=== PATIENT | male | born 1965 | race Caucasian/White ===

== ENCOUNTER 2020-01-04 21:58 | Emergency (ER) | payer BC ==
[2020-01-04] MEDS ORDERED: Bupivacaine 0.5% 10 ML SDV INJECT ONE (22:44)
[2020-01-04] MEDS ORDERED: Penicillin G Benzathine 1,200,000 Units/2 ML Syringe IM ONE (22:59)
--- NOTE | 2020-01-04 23:02 | EDM.PDOC ---
ED HPI GENERAL MEDICAL PROBLEM - General Chief Complaint: General Stated Complaint: TOOTH ACHE Time Seen by Provider: 01/04/20 22:45 Source of Information: Reports: Patient - History of Present Illness INITIAL COMMENTS - FREE TEXT/NARRATIVE: The patient is a 54-year-old male who presents the ER secondary to pain and swelling in his left lower mandible. He has some bad teeth and does have a dental appointment coming up. No other complaints. Left Lower Tooth/Teeth Pain Score (Numeric/FACES): 8 - Related Data Allergies Allergy/AdvReac Type Severity Reaction Status Date / Time Sulfa (Sulfonamide Allergy Anaphylactic Verified 01/04/20 22:17 Antibiotics) Shock Home Meds: Home Meds . [No Known Home Meds] 01/04/20 [History] Past Medical History Cardiovascular History: Reports: None Respiratory History: Reports: None Gastrointestinal History: Reports: None Genitourinary History: Reports: None Musculoskeletal History: Reports: Fracture Neurological History: Reports: None Psychiatric History: Reports: None Endocrine/Metabolic History: Reports: None Hematologic History: Reports: None Immunologic History: Reports: None Oncologic (Cancer) History: Reports: None Dermatologic History: Reports: None - Infectious Disease History Infectious Disease History: Reports: Chicken Pox - Past Surgical History HEENT Surgical History: Reports: Other (See Below) Other HEENT Surgeries/Procedures: facial sx. Musculoskeletal Surgical History: Reports: Other (See Below) Other Musculoskeletal Surgeries/Procedures:: back sx L3, L4,L5. L foot sx Social & Family History - Tobacco Use Smoking Status *Q: Current Every Day Smoker Years of Tobacco use: 38 Packs/Tins Daily: 1 - Recreational Drug Use Recreational Drug Use: No ED ROS GENERAL - Review of Systems Review Of Systems: See Below (Positive for dental pain and swelling, negative for fevers, negative for headache) ED EXAM, GENERAL - Physical Exam Exam: See Below Free Text/Narrative:: Constitutional: No acute distress, Non-toxic appearance. HEENT: Normocephalic, Atraumatic, EOMI, poor dentition, just laterally of teeth 21 and 22 there is a large dental abscess, there is some associated swelling of the mandible externally Neck: Normal range of motion, No stridor, trachea midline Respiratory: No respiratory distress, No tachypnea Cardiovascular: Deferred Gastrointestinal: Deferred Genital / Urinary: Deferred Musculoskeletal: All four extremities present and atraumatic Back: FROM Integument: Warm, Dry, Color is ethnicity appropriate, No rash. Neuro: Alert, Awake, No focal deficits noted Psych: Affect, Judgement, mood normal Course - Vital Signs Text/Narrative:: Local dental block and dental abscess incision and drainage was performed by me using bupivacaine 0.5% and I injected 4 mL into the dental abscess. No complications occurred and then I used a #11 blade and performed a 1 cm linear incision to the area of greatest fluctuance and large amount of bloody purulent drainage was obtained. The patient was then given a dose of Bicillin LA and he is stable for discharge. Last Recorded V/S: Last Vital Signs Temp 36.2 C 01/04/20 23:12 Pulse 66 01/04/20 23:12 Resp 17 01/04/20 23:12 BP 131/68 01/04/20 23:12 Pulse Ox 98 01/04/20 23:12 - Orders/Labs/Meds Meds: Medications Discontinued Medications Generic Name Dose Route Start Last Admin Trade Name Gem PRN Reason Stop Dose Admin Bupivacaine HCl 10 ml 01/04/20 22:44 01/04/20 22:48 Sensorcaine-Mpf 0.5% INJECT 01/04/20 22:45 10 ml ONETIME ONE Administration Penicillin G Benzathine 1.2 millunits 01/04/20 22:59 01/04/20 23:06 Bicillin L-A IM 01/04/20 23:00 1.2 millunits ONETIME ONE Administration Departure - Departure Time of Disposition: 23:02 Disposition: Home, Self-Care 01 Condition: Good Clinical Impression: Dental abscess - Discharge Information Instructions: Dental Abscess Referrals: PCP,Not In Area [Primary Care Provider] - Forms: ED Department Discharge Sepsis Event Note - Evaluation Sepsis Screening Result: No Definite Risk - Focused Exam Vital Signs: Vital Signs Temp Pulse Resp BP Pulse Ox 01/04/20 23:12 36.2 C 66 17 131/68 98 01/04/20 22:14 36.3 C 68 18 129/77 97 Date Exam was Performed: 01/05/20 Time Exam was Performed: 00:47
== END 2020-01-04 23:26 | disposition home or self-care (01) ==
LOC: MW.ED 21:58
DX: K04.7 Periapical abscess without sinus (principal); F17.210 Nicotine dependence, cigarettes, uncomplicated; Z88.2 Allergy status to sulfonamides
CPT/HCPCS: 41800; 96372; 99282; J0561; J3490